=== PATIENT | male | born 1990 | race Caucasian/White ===

== ENCOUNTER 2022-01-20 10:38 | Emergency (ER) | payer BC ==
[2022-01-20 11:17] VITALS: BP 129/72; PULSE 91
[2022-01-20 11:55] LABS: CARBON DIOXIDE,CO2 22.8 mmol/L (21.0-32.0); POTASSIUM,K 3.8 mmol/L (3.5-5.1)
[2022-01-20] MEDS ORDERED: Sodium Chloride 0.9% 1,000 ML IV ONE (12:48)
[2022-01-20] MEDS ORDERED: Iopamidol 755 MG/ML 500 ML Multipack Bottle IVPUSH STA (12:59)
[2022-01-20] MEDS ORDERED: Amoxicillin/Clavulanate K 875-125 MG Tab PO ONE (14:11)
== END 2022-01-20 14:50 | disposition home or self-care (01) ==
LOC: MW.ED 10:38
DX: Q18.0 Sinus, fistula and cyst of branchial cleft (principal); Z20.822 Contact with and (suspected) exposure to COVID-19
CPT/HCPCS: 36415; 70491; 80053; 83605; 84443; 85025; 87040; 87635; 99283; A9270; J7030; Q9967; U0002

== ENCOUNTER 2022-08-16 08:49 | Emergency (ER) | payer BC ==
[2022-08-16 10:26] LABS: POTASSIUM,K 4.1 mmol/L (3.5-5.1)
[2022-08-16 11:20] VITALS: BP 119/67; PULSE 94
== END 2022-08-16 11:20 | disposition home or self-care (01) ==
LOC: MW.ED 08:49
DX: K92.1 Melena (principal); Z72.0 Tobacco use
CPT/HCPCS: 36415; 80053; 85025; 99283; 99284

== ENCOUNTER 2022-12-05 20:10 | Emergency (ER) | payer BC ==
[2022-12-05] MEDS ORDERED: Lidocaine 1% with EPINEPHrine 1:100,000 20 ML MDV INJECT ONE (21:41)
[2022-12-05] MEDS ORDERED: Diphtheria,Pertussis(Acell),Tetanus Vaccine 0.5 ML Syringe IM ONE (21:42)
[2022-12-05 21:55] VITALS: BP 129/67; PULSE 98
== END 2022-12-05 22:14 | disposition home or self-care (01) ==
LOC: MW.ED 20:10
DX: S61.411A Laceration without foreign body of right hand, initial encounter (principal); Z23 Encounter for immunization; W26.0XXA Contact with knife, initial encounter
CPT/HCPCS: 12002; 90471; 90715; 99282; 99282-25; J3490